=== PATIENT | male | born 1970 | race Caucasian/White ===

== ENCOUNTER 2018-10-16 18:25 | Emergency (ER) | payer BC, OTHER ==
[~2018-10-16] VITALS: Ht 172.7 cm; Wt 105.2 kg
[2018-10-16 18:44] VITALS: BP_SYST 114
--- NOTE | 2018-10-16 18:49 | NUR ---
Patient triaged and placed in waiting room. VSS and patient appears in no acute distress at this time. Accompanied by self, awaiting available bed, and MD notified of need for MSE.
--- NOTE | 2018-10-16 21:05 | NUR ---
Patient to ER bed 4 to gown for evaluation. Side rails up. Report given to Swapnil ROJAS.
--- NOTE | 2018-10-16 21:50 | NUR ---
Pt BIB family to ED C/O moderate redness, swelling, and drainage of the right greater toe. The patient reports the medial aspect or the greater toenail was ingrown 3-4 days ago, and causing him pain. He states he cut out the ingrown aspect a few days ago. However after removing the ingrown aspect of the toe nail he developed more swelling of the right greater toe and some discharge from site. He reports cleaning the toe daily with minimal improvement of redness. No other injuries and or complaints noted. VSS no s/s of acute distress. Resting on gurney rails up
--- NOTE | 2018-10-16 22:13 | NUR ---
Dr. Mcdaniels bedside for Pt eval
[2018-10-16] MEDS ORDERED: cefTRIAXone 1 GM VIAL IM ONE (22:30)
[2018-10-16] MEDS ORDERED: LIDOCAINE 1%, 20 ML MDV 20 ML ONE (22:40)
[2018-10-16 23:05] VITALS: BP_SYST 123
--- NOTE | 2018-10-16 23:05 | NUR ---
Patient given written and verbal discharge instructions and verbalizes understanding. ER MD discussed with patient the results and treatment provided. Patient in stable condition. ID arm band removed. Rx of Keflex given. Patient educated on pain management and to follow up with PMD. Pain Scale 0/10 Opportunity for questions provided and answered. Medication side effect fact sheet provided.
== END 2018-10-16 23:05 | disposition home or self-care (01) ==
LOC: SED 18:25
DX: L60.0 Ingrowing nail (principal); L08.89 Other specified local infections of the skin and subcutaneous tissue
CPT/HCPCS: 96372; 99283; J0696; J2001